=== PATIENT | male | born 2000 | race Hispanic/Latino ===

== ENCOUNTER 2024-05-31 16:52 | Emergency (ER) | payer SELFPAY ==
[~2024-05-31 16:52] MED LIST: Iopamidol 300 61% 100 ML VIAL FS ONE
[2024-05-31] MEDS ORDERED: Ketorolac Tromethamine 30 MG (1 mL) VIAL ONE (17:11)
[2024-05-31] MEDS ORDERED: Morphine 4 MG/ML VIAL ONE (17:11)
[2024-05-31 17:57] LABS: #Basophils 0.05 10x3/uL (0.0-0.2); #Eosinophils 0.01 10x3/uL (0.0-0.5); #Neutrophils 11.21 10x3/uL (1.5-8.4); %Basophils 0.4 % (0.0-2.0); %Eosinophils 0.1 % (0.0-6.0); %Lymphocytes 4.2 % (18.0-47.0); %Monocytes 1.7 % (0.0-10.0); %Neutrophils 93.3 % (40.0-75.0); Hematocrit 47.2 % (38.8-50.0); Hemoglobin 16.7 g/dL (13.5-17.5); Mean Corpuscular HGB CONC 35.4 g/dL (32.0-36.0); Mean Corpuscular Hemoglobin 30.4 pg (27.0-33.0); Mean Platelet Volume 9.3 fL (7.4-10.4); Platelet Count 251 10x3/uL (150-450); RBC Distribution Width 12.5 % (11.5-14.5); Red Blood Cell (RBC) Count 5.49 10x6/uL (4.32-5.72)
[2024-05-31] MEDS ORDERED: Haloperidol Lactate 5 MG/ML VIAL ONE (18:06)
[2024-05-31] MEDS ORDERED: diphenhydrAMINE 50 MG/ML VIAL ONE (18:06)
[2024-05-31 18:13] LABS: Acetaminophen Less than 10 mcg/mL (Less than 10); Alcohol Less than 10.0 mg/dL (Less than 10); Salicylate Less than 8.0 mg/dL (Less than 8.0)
[2024-05-31 18:16] LABS: ALT (SGPT) 17 U/L (8-55); AST (SGOT) 25 U/L (5-34); Albumin 5.1 g/dL (3.5-5.0); Alkaline Phosphatase 71 U/L (40-110); Anion Gap 24 mmol/L (10-20); BUN (Urea Nitrogen) 9 mg/dL (8.9-20.6); Bilirubin, Total 1.1 mg/dL (0.2-1.2); Calc. Creatinine Clearance 0 mL/min (70-130); Calcium 9.5 mg/dL (7.8-10.44); Carbon Dioxide 17 mmol/L (22-29); Chloride 104 mmol/L (98-107); Estimated GFR 108; Globulin 3.4 g/dL (2.4-3.5); Glucose 127 mg/dL (70-105); Lipase 10 U/L (8-78); Potassium 4.5 mmol/L (3.5-5.1); Protein, Total 8.5 g/dL (6.0-8.3); Sodium 140 mmol/L (136-145)
== END 2024-05-31 21:13 | disposition home or self-care (01) ==
LOC: CSHERS 16:52
DX: F12.10 Cannabis abuse, uncomplicated (principal); R10.84 Generalized abdominal pain; R11.2 Nausea with vomiting, unspecified; Z55.6 Problems related to health literacy
CPT/HCPCS: 71045; 74177; 80053; 80307; 83690; 85025; 93005; 96374; 96375; J1200; J1630; J1885; J2272; Q9967

== ENCOUNTER 2024-07-14 16:27 | Emergency (ER) | payer SELFPAY ==
[2024-07-14] MEDS ORDERED: Morphine 4 MG/ML VIAL ONE ×2 (17:40→19:21)
[2024-07-14] MEDS ORDERED: Ondansetron PF 4 MG/2 ML Vial ONE (17:40)
[2024-07-14 18:03] LABS: PTT 26.1 sec (22.0-33.0); Prothrombin Time 10.6 sec (9.5-12.1)
[2024-07-14 18:07] LABS: #Basophils 0.05 10x3/uL (0.0-0.2); #Eosinophils 0.02 10x3/uL (0.0-0.5); #Monocytes 0.97 10x3/uL (0.0-1.1); %Basophils 0.3 % (0.0-2.0); %Eosinophils 0.1 % (0.0-6.0); %Lymphocytes 9.6 % (18.0-47.0); %Monocytes 5.4 % (0.0-10.0); Hematocrit 39.8 % (38.8-50.0); Hemoglobin 13.9 g/dL (13.5-17.5); Mean Corpuscular HGB CONC 34.9 g/dL (32.0-36.0); Mean Corpuscular Hemoglobin 30.1 pg (27.0-33.0); Mean Corpuscular Volume 86.1 fL (81.2-95.1); Mean Platelet Volume 9.2 fL (7.4-10.4); Platelet Count 237 10x3/uL (150-450); RBC Distribution Width 12.9 % (11.5-14.5); Red Blood Cell (RBC) Count 4.62 10x6/uL (4.32-5.72); White Blood Cell (WBC) Count 17.9 10x3/uL (3.5-10.5)
[2024-07-14 18:10] LABS: Troponin I Less than 0.010 ng/mL (< 0.028)
[2024-07-14 18:17] LABS: ALT (SGPT) 16 U/L (8-55); AST (SGOT) 26 U/L (5-34); Albumin 4.4 g/dL (3.5-5.0); Alcohol Less than 10.0 mg/dL (Less than 10); Alkaline Phosphatase 61 U/L (40-110); Anion Gap 17 mmol/L (10-20); BUN (Urea Nitrogen) 13 mg/dL (8.9-20.6); Bilirubin, Total 1.6 mg/dL (0.2-1.2); Calc. Creatinine Clearance 0 mL/min (70-130); Calcium 9.6 mg/dL (7.8-10.44); Carbon Dioxide 17 mmol/L (22-29); Chloride 105 mmol/L (98-107); Estimated GFR 127; Globulin 2.9 g/dL (2.4-3.5); Glucose 124 mg/dL (70-105); Lipase 11 U/L (8-78); Potassium 4.2 mmol/L (3.5-5.1); Protein, Total 7.3 g/dL (6.0-8.3); Sodium 135 mmol/L (136-145)
[2024-07-14] MEDS ORDERED: Dexamethasone 10 MG/ML VIAL ONE (19:21)
[2024-07-14] MEDS ORDERED: Ketorolac Tromethamine 30 MG (1 mL) VIAL ONE (19:38)
[2024-07-14] MEDS ORDERED: Methocarbamol 500 MG TAB ONE (19:38)
[2024-07-14] MEDS ORDERED: HYDROmorphone 0.5 MG/0.5 ML SYRINGE ONE (21:34)
[2024-07-15] MEDS ORDERED: Lorazepam 2 MG/ML VIAL ONE (01:14)
[2024-07-15 01:23] LABS: Bilirubin Neg (Negative); Blood, Urine 10 (Negative); Clarity Clear (Clear); Glucose, Urine (Dipstick) Normal (Negative); Ketone, Urine 150 mg/dL (Negative); Leukocyte Negative (Negative); Nitrite Negative (Negative); Protein, Urine (Dipstick) Negative (Neg-Trace); Specific Gravity, Urine 1.015 (1.005-1.030); Urobilinogen Normal mg/dL (Less than 2)
[2024-07-15 01:32] LABS: Amphetamine Not Detected (NotDetected); Bacteria/HPF None Seen HPF (None Seen); Barbiturates Screen Not Detected (NotDetected); Benzodiazepine Screen Not Detected (NotDetected); CAUTI Indications for Culture Alt mental st,lethar; Cocaine Metabolite Screen Detected (NotDetected); Methadone Not Detected (NotDetected); Methamphetamine Not Detected (NotDetected); Opiate Screen Detected (NotDetected); Oxycodone Screen Not Detected (NotDetected); Phencyclidine (PCP) Not Detected (NotDetected); RBC/HPF 0-3 HPF (0-3); Squamous Epithelial None Seen HPF (0-3); THC/Cannabinoid Screen Detected (NotDetected); Tricyclic Screen Not Detected (NotDetected); WBC/HPF None Seen HPF (0-3)
[2024-07-15 01:33] LABS: Urine Culture Reflex No No
== END 2024-07-15 02:00 | disposition home or self-care (01) ==
LOC: CSHERS 16:27
DX: S00.81XA Abrasion of other part of head, initial encounter (principal); M62.838 Other muscle spasm; Y04.8XXA Assault by other bodily force, initial encounter
CPT/HCPCS: 36415; 36416; 70450; 71260; 72125; 72141; 74177; 80053; 80306; 80307; 81001; 83690; 84484; 85025; 85610; 85730; 86850; 86900; 86901; 93005; 94760; 96374; 96375; 96376; J1100; J1885; J2060; J2272; J2405